=== PATIENT | female | born 1990 | race Caucasian/White ===

== ENCOUNTER → 2016-10-11 | Outpatient (CLI) | payer OTHER ==
[~2016-10-11] MED LIST: PRENTAB26 PO
[2016-10-11 12:21] LABS: BASO % 0.7 %; BASO ABS # 0.07 K/uL (0-0.2); COMPLETE YES; EOS % 1.3 %; HEMATOCRIT 39.4 % (37-47); IG% 0.4 %; LYMPH % 26.5 %; LYMPH ABS # 2.75 K/uL (1.2-3.4); MEAN CELL VOLUME 87.4 fL (80-100); MEAN CORPUSCULAR HEMOGLOBIN 31.5 pg (25-34); MEAN PLATELET VOLUME 10.1 fL (7.4-10.4); MONO % 6.5 %; NEUT % 64.6 %; PLATELET COUNT 260 K/uL (130-400); RED BLOOD COUNT 4.51 M/uL (4.2-5.4); WHITE BLOOD COUNT 10.38 K/uL (4.8-10.8)
== END | disposition home or self-care (01) ==
LOC: C.LAB1850 10:35
PROVIDERS: ATTEND Obstetrics & Gynecology
DX: Z34.90 Encounter for supervision of normal pregnancy, unspecified, unspecified trimester (principal)

== ENCOUNTER → 2016-10-25 | Outpatient (CLI) | payer OTHER ==
[2016-10-25 14:15] LABS: GTGD 50 Grams
== END | disposition home or self-care (01) ==
LOC: C.LAB1850 12:21
PROVIDERS: ATTEND Obstetrics & Gynecology
DX: Z34.92 Encounter for supervision of normal pregnancy, unspecified, second trimester (principal)

== ENCOUNTER → 2017-03-20 | Outpatient (CLI) | payer OTHER ==
[2017-03-20 13:18] LABS: URINE APPEARANCE CLEAR (CLEAR); URINE BILIRUBIN NEG (NEG); URINE COLOR YELLOW; URINE NITRITE NEG (NEG); URINE PH 7.5 (4.5-7.5); URINE SPECIFIC GRAVITY 1.015 (1.000-1.030); UROBILINOGEN NEG (NEG)
[2017-03-20 13:24] LABS: MANUAL MICROSCOPIC REQUIRED? NO; REVIEW REQ? NO
== END | disposition home or self-care (01) ==
LOC: C.LAB1850 12:05
PROVIDERS: ATTEND Obstetrics & Gynecology
DX: Z34.03 Encounter for supervision of normal first pregnancy, third trimester (principal)

== ENCOUNTER 2017-04-12 16:43 | Inpatient (IN) | payer OTHER ==
[~2017-04-12] VITALS: Ht 160 cm; Wt 60.9 kg
[2017-04-12] MEDS ORDERED: PRENTAB26 PO (17:34)
[2017-04-12 17:35] VITALS: Ht 160 cm; Wt 60.9 kg
[2017-04-12] MEDS ORDERED: LACTATED RINGER'S 1000ML 1,000 ML IV PRN (19:59)
[2017-04-12] MEDS ORDERED: OXYTOCIN 30 UNITS/500ML NSS IV ONE (20:00)
[2017-04-12 20:18] LABS: HEMATOCRIT 37.1 % (37-47); MEAN CELL VOLUME 87.3 fL (80-100); MEAN CORPUSCULAR HEMOGLOBIN 30.4 pg (25-34); MEAN CORPUSCULAR HGB CONC 34.8 g/dl (32-36); MEAN PLATELET VOLUME 10.2 fL (7.4-10.4); PLATELET COUNT 207 K/uL (130-400); RED BLOOD COUNT 4.25 M/uL (4.2-5.4)
[2017-04-12] MEDS ORDERED: LACTATED RINGER'S 1000ML 1,000 ML IV SCH (20:30)
[2017-04-12] MEDS ORDERED: BENZOCAINE 20% AER SPR 82.5 GM CAN EXT PRN (20:45)
[2017-04-12] MEDS ORDERED: ACETAMINOPHEN/CODEINE 300/30MG TAB PO PRN ×2 (20:45)
[2017-04-12] MEDS ORDERED: OXYTOCIN 30 UNITS/500ML NSS IV PRN (20:45)
[2017-04-12] MEDS ORDERED: ACETAMINOPHEN 325 MG TAB PO PRN (20:45)
[2017-04-12] MEDS ORDERED: SUPERCREAM 0.870 % 15GM JAR EXT PRN (20:45)
[2017-04-12] MEDS ORDERED: LANOLIN OINT EXT PRN ×2 (20:45)
[2017-04-12 23:40] VITALS: BP 128/73; PULSE 79; TEMP 36.9
--- NOTE | 2017-04-12 23:51 | DELIVERY SUMMARY ---
DATE OF OPERATION: 04/12/2017 The patient is a 26-year-old 2, para 1-0-0-1 white female, EDC of 04/13/2017, who presented with spontaneous onset of labor. She progressed to full dilation after rupture of membranes for clear fluid at 8 cm. She pushed effectively over an intact perineum for delivery of a viable female infant. Mouth and nasopharynx were suctioned on the perineum. There was vigorous crying and the infant was moving all four limbs. The placenta was expressed intact with a 3-vessel cord. There was a superficial abrasion of the left labia that was not repaired because it was not bleeding. Estimated blood loss was 250. Mother and infant doing well after the delivery. I attest to the content of the Intraoperative Record and any orders documented therein. Any exception s are noted below.
[2017-04-13] MEDS: IBUPROFEN 600 MG TAB PO PRN ×2 (00:40→16:32)
[2017-04-13 03:30] VITALS: BP 102/62; PULSE 62; TEMP 36.6
[2017-04-13 07:22] LABS: HEMATOCRIT 32.7 % (37-47)
[2017-04-13 07:32] VITALS: BP 107/67; PULSE 60; TEMP 36.6; O2SAT 98
[2017-04-13] MEDS: DOCUSATE SODIUM 100 MG CAP PO SCH ×2 (07:59→19:58)
[2017-04-13] MEDS ORDERED: PRENATAL VITAMIN TAB PO SCH (08:00)
--- NOTE | 2017-04-13 08:56 | Progress Note ---
Subjective Apr 13, 2017. Subjective conversation w/ patient, physical exam Ambulation: ambulating normally Voiding: no voiding problems Passing Gas: Yes Diet Tolerance: Regular Diet Lochia: Small Feeding Type: Breast Feeding Review of Systems Cardiac: No chest pain, No orthopnea, No PND, No edema, No claudication, No palpitations, No problem reported Breast: No see HPI, No breast lump, No change in shape, No nipple discharge, No breast pain, No problem reported Abdomen: No pain, No nausea, No vomiting, No diarrhea, No constipation, No GI bleeding, No problem reported Female : No see HPI, No dysuria, No urinary frequency, No hematuria, No incontinence, No abnormal vaginal bleeding, No vaginal discharge, No problem reported Objective Vital Signs Date Time Temp Pulse Resp B/P (MAP) Pulse Ox O2 Delivery O2 Flow Rate FiO2 04/13/17 07:32 36.6 60 16 107/67 (80) 98 Room Air 04/13/17 03:30 36.6 62 18 102/62 (75) Room Air 04/12/17 23:40 Room Air 04/12/17 23:40 36.9 79 18 128/73 (91) Room Air Physical Exam General Appearance: WELL-APPEARING Abdomen: non tender, soft Fundus: Firm, Non-Tender Extremities: no calf tenderness Laboratory Results Last 24 Hours Test 04/12/17 20:09 04/13/17 07:08 White Blood Count 17.70 K/uL Red Blood Count 4.25 M/uL Hemoglobin 12.9 g/dL 11.4 g/dL Hematocrit 37.1 % 32.7 % Mean Corpuscular Volume 87.3 fL Mean Corpuscular Hemoglobin 30.4 pg Mean Corpuscular Hemoglobin Concent 34.8 g/dl RDW Standard Deviation 40.6 fL RDW Coefficient of Variation 12.7 % Platelet Count 207 K/uL Mean Platelet Volume 10.2 fL Assessment and Plan Day#: 1 Continue Routine Care: stable course continue current care plan.
--- NOTE | 2017-04-13 08:58 | Discharge Instructions ---
Discharge Instructions Date of Service Apr 13, 2017. Admission Reason for Admission: Normal Labor Discharge Discharge Diagnosis / Problem: recovery form normal delivery Discharge Goals Goal(s): Routine recovery after delivery Medications Continue Dispensed Medications: supercream, dermaplast, tucks, lansinoh Activity Recommendations Activity Limitations: per Instructions/Follow-up section . Instructions / Follow-Up Instructions / Follow-Up ACTIVITY RECOMMENDATIONS: * Gradual return to full activity over the next 2-3 weeks. * No lifting - nothing heavier than baby over the next 2-3 weeks. * Do not engage in vigorous exercise, sexual activity or sports until cleared by your physician. * Do not drive or operate any motorized equipment until cleared by your physician. * You may shower/bathe daily. MEDICATIONS: For discomfort or pain, you may use Acetaminophen (Tylenol), Ibuprofen (Advil), or Naproxen (Aleve) following the package directions. For constipation you may use Colace following the package directions. BREAST CARE: If you are not breast feeding: * Wear a supportive bra 24 hours a day for one to two weeks. * Avoid stimulating your breasts and nipples as much as possible during the first few weeks after delivery. * When taking a shower, have the warm water hit your back, not breasts. * When your breasts feel full, apply ice packs. Usually three to four times a day helps ease the discomfort. * Take a mild pain medication (Tylenol / Motrin) when you are uncomfortable. If breast feeding: * Use breast milk to lubricate nipples. Lansinoh cream may be used for sore nipples. You do not need to remove cream prior to breast feeding. If using a different brand of cream, check the label for directions regarding removal of cream prior to nursing. * Wear a supportive bra. * If having problems with breasts or breast feeding, call a application development consultant or your health care provider. EPISIOTOMY CARE: After delivery, if you have an episiotomy (stitches), the following steps will ease discomfort and aid healing. * For the first 24 hours after delivery, place ice packs next to your episiotomy to help reduce swelling. * After the first 24 hour-period, sitz baths, either portable or in the tub, are suggested. A shower with a shower arm sprayed over the episiotomy may be comforting. * Helen care should be done after each voiding and bowel movement. Squirt warm water from a plastic bottle over the perineum (region of the body between the anus and urinary opening) and pat dry. * Use Dermoplast to ease discomfort. Shake container. [place] directly over the episiotomy. Place a Tucks on a clean sanitary pad next to your episiotomy. SPECIAL CARE INSTRUCTIONS: When you are discharged from the hospital, it is important for you to follow the instructions listed below: * During the first week at home, you should be able to care for yourself and your baby. In addition, the usual light household activities are encouraged. * Limit your activities to the way you feel. Do not try to clean the house or move furniture. Be sensible. * If you actively engage in sports and have done so up until the time of your delivery, you may resume these activities as soon as you feel able. This may take up to one month or even longer. Use good judgment. * Continue to take your vitamins for at least six weeks after the of your baby. * Your diet need not be limited unless you were on a special diet before your delivery. Breast-feeding mothers need around 2500 calories per day and at least 64-80 ounces of fluid per day (8 to 10 glasses). * You should eat foods from the four major food groups. Crash diets or fad diets are to be avoided. Eating lean meats, fresh fruits and vegetables, low-fat dairy products, high fiber foods and a regular exercise program, will help you get back to your pre- weight without putting your health at risk. * Constipation is sometimes a problem after delivery. Take a mild laxative as needed. If breast feeding, Milk of Magnesia is acceptable to use. You may use a suppository or Fleets enema if no episiotomy. * A daily shower or tub bath is suggested. Be sure to thoroughly and gently dry the perineum. * A bloody vaginal discharge will usually continue until around four weeks post . A small amount of bleeding may continue for as long as six weeks. Vaginal discharge changes from the bright red bleeding after delivery to pink then brownish and finally yellowish-pink before becoming white and disappearing. * Bleeding may increase with activity. Your first period may come in 4-8 weeks. If you are breast feeding, your period may be delayed even longer. * Wilbur (sex) can begin whenever both you and your partner feel comfortable and do not have any form of genital infection. It is recommended that you wait at least six weeks for internal and external healing to occur. If you have questions, please talk to your health care practitioner. A condom should be used to prevent infection and . * Foreplay, gentle intercourse and lubrication is very important the first several times to prevent pain. A water-based lubricant such as K-Y jelly or Astroglide may be used. * If you have RH negative blood and your baby is RH positive, you will receive RHOGAM by injection prior to discharge. The nurse will give you a card to keep with you that has the date and place that you received RHOGAM after delivery. * During your care, you had a Rubella screen done to check for the presence of rubella antibodies in your blood. If your test was negative, you will receive a Rubella vaccine prior to discharge. This vaccine may cause a fever, soreness at the injection site and flu-like symptoms. If these symptoms persist, notify your health care practitioner. is not advised for one month after a Rubella vaccine. * Verbalizes understanding of car seat law as reviewed with patient nursing. * Car Seat hand-out given and reviewed with patient by nursing. * Shaken baby information reviewed with patient by nursing. Call you doctor if: * Heavy bleeding (saturating several pads an hour) or passing clots the size of your fist. * A fever >101 degrees F (38.3 degrees C) on two occasions four hours apart and /or chills. * Unusual pain in the pelvic or vaginal areas. * "Baby Blues" lasting longer than two weeks. If you have any questions or concerns, call your health care practitioner at . FOLLOW UP VISIT: * Please call the office at to schedule a 6 week examination. It is important you keep this appointment. It is important for you to make arrangements for either yearly or twice yearly check-ups thereafter. Current Hospital Diet Patient's current hospital diet: Regular OB Diet Discharge Diet Recommended Diet: Regular OB Diet Pending Studies Studies pending at discharge: no Medical Emergencies . Who to Call and When: Medical Emergencies: If at any time you feel your situation is an emergency, please call [phone] immediately. . Non-Emergent Contact Non-Emergency issues call your: Pharmacist In Charge . . "Provider Documentation" section prepared by Cee Torre. . VTE Core Measure Inpt VTE Proph given/why not?: Treatment not indicated
[2017-04-13 13:00] VITALS: BP 117/76; PULSE 76; TEMP 36.6; O2SAT 98
[2017-04-13 16:15] VITALS: BP 113/74; PULSE 67; TEMP 36.5; O2SAT 97
[2017-04-13 20:09] VITALS: BP_DIAS 74; PULSE 67; TEMP 36.5
== END 2017-04-13 22:18 | disposition home or self-care (01) | DRG 775 ==
LOC: C.OPB 16:43 → C.LD 16:44 → C.OPB 20:01 → C.OBG 23:23
PROVIDERS: ADMIT Student in an Organized Health Care Education/Training Program; ATTEND Obstetrics & Gynecology
PROC: 10E0XZZ Delivery of Products of Conception, External Approach (ICD-10-PCS; principal; 2017-04-12)
DX: O80 Encounter for full-term uncomplicated delivery (principal); Z88.0 Allergy status to penicillin; Z37.0 Single live birth; Z3A.39 39 weeks gestation of pregnancy

== ENCOUNTER → 2018-03-30 | Outpatient (CLI) | payer OTHER | END | disposition home or self-care (01) | LOC: C.LABSPEC 16:41 | PROVIDERS: ATTEND Obstetrics & Gynecology | DX: Z34.81 Encounter for supervision of other normal pregnancy, first trimester (principal) ==

== ENCOUNTER → 2018-04-07 | Outpatient (CLI) | payer OTHER ==
[2018-04-07 12:35] LABS: BASO % 0.4 %; BASO ABS # 0.04 K/uL (0-0.2); EOS % 2.5 %; EOS ABS # 0.22 K/uL (0-0.5); HEMATOCRIT 38.8 % (37-47); HEMOGLOBIN 13.6 g/dL (12.0-16.0); IG# 0.03 K/uL (0.00-0.02); LYMPH % 29.8 %; LYMPH ABS # 2.66 K/uL (1.2-3.4); MEAN CELL VOLUME 85.5 fL (80-100); MEAN CORPUSCULAR HGB CONC 35.1 g/dl (32-36); MEAN PLATELET VOLUME 10.3 fL (7.4-10.4); MONO % 6.7 %; NEUT % 60.3 %; NEUT ABS # 5.38 K/uL (1.4-6.5); PLATELET COUNT 262 K/uL (130-400); RED CELL DISTRIBUTION WIDTH CV 12.8 % (11.5-14.5); RED CELL DISTRIBUTION WIDTH SD 39.9 fL (36.4-46.3); WHITE BLOOD COUNT 8.93 K/uL (4.8-10.8)
== END | disposition home or self-care (01) ==
LOC: C.LAB1850 11:13
PROVIDERS: ATTEND Obstetrics & Gynecology
DX: Z34.81 Encounter for supervision of other normal pregnancy, first trimester (principal); Z20.9 Contact with and (suspected) exposure to unspecified communicable disease

== ENCOUNTER → 2018-04-07 | Outpatient (CLI) | payer OTHER | END | disposition home or self-care (01) | LOC: C.PAPS 14:00 | PROVIDERS: ATTEND Obstetrics & Gynecology | DX: Z12.4 Encounter for screening for malignant neoplasm of cervix (principal) ==

== ENCOUNTER 2018-11-14 19:52 | Inpatient (IN) ==
[2018-11-14] MEDS ORDERED: OXYTOCIN 30 UNITS/500 ML BAG IV PRN (20:10)
[2018-11-14] MEDS ORDERED: LACTATED RINGER'S 1,000 ML IV PRN (20:10)
[2018-11-14] MEDS ORDERED: LACTATED RINGER'S 1,000 ML IV SCH (20:15)
--- NOTE | 2018-11-14 20:18 | History & Physical Report ---
Date of Service November 14, 2018 Assessment & Plan (1) 40 weeks gestation of : Since patient has made cervical change since office exam on , will plan to admit to L&D. Will obtain labs, start IV. Patient ok to walk halls afterwards, providing normal tracing, and will then plan to recheck cervix to monitor labor status. Patient is agreeable to this plan. She does not plan for epidural. History of Present Illness Chief Complaint: r/o labor Primary Care Provider: NO PCP 28yo @ 40 0/7 presents with worsening regular ctx. No leaking of fluid, no vaginal bleeding. + movement. No additional symptoms. complicated by small VSD seen on echo at [facility] - no followup was recommended. Allergies Allergy/AdvReac Type Severity Reaction Status Date / Time Penicillins Allergy Mild RASH Verified 04/12/17 17:34 Home Medications Home Medications Medication Instructions Recorded Confirmed Type vit-iron fum-folic ac 1 tab PO DAILY 08/27/18 08/27/18 History [ Vitamin] Patient History Social History Preferred Language: Yi Communication Ability: Effective Beliefs That Will Affect Care: None marital status: Current Living Situation: Spouse and Family Other Information That Helps Us Care for You: No Feels Safe at Home: Yes Smoking Status: Never smoker Hx Alcohol Use: No Hx Substance Use: No Review of Systems All systems reviewed & are unremarkable except as noted in HPI & below Physical Exam Vital Signs (Past 24 Hours): Last Vital Signs Pulse 85 11/14/18 19:56 BP 133/7 L 11/14/18 20:04 Physical Exam: Gen: AAOx3 NAD CV: RRR S1S2 L: CTAB Abd: soft, NTTP, gravid Ext: no edema SVE: 90/-1 FHT: Cat 1 [place]: Q 2-5 min
[2018-11-14 20:49] LABS: Hematocrit (blood only) 33.1 % (37-47); Hemoglobin 11.6 g/dL (12.0-16.0); Mean Corpuscular Volume 88.7 fL (80-100); Mean Platelet Volume 10.7 fL (7.4-10.4); Platelet Count 204 K/uL (130-400); RDW Coefficient of Variation 12.8 % (11.5-14.5); RDW Standard Deviation 41.2 fL (36.4-46.3); Red Blood Count 3.73 M/uL (4.2-5.4); White Blood Count 11.98 K/uL (4.8-10.8)
--- NOTE | 2018-11-14 22:25 | Obstetrical Progress Note ---
Date of Service November 14, 2018 Subjective Feeling increased pressure with contractions. FHT Cat 1 [place] Q 2-4 SVE 6/100/0 AROM clear fluid. Anticipate . Physical Exam Vital Signs (Past 24 Hours): Last Vital Signs Pulse 86 11/14/18 22:22 Resp 18 11/14/18 22:00 BP 136/94 11/14/18 22:22
--- NOTE | 2018-11-14 23:59 | Procedure Note ---
Vaginal Delivery Summary Date of Service November 14, 2018 Vaginal Delivery Summary Predelivery diagnoses: 28yo @ 40 0/7, spontaneous labor Postdelivery diagnoses: same Procedure: Spontaneous vaginal delivery Surgeon: Pooja Fabian DO Estimated blood loss: 300 mL Complications: None Findings: Viable female , Apgars 8 and 9. Weight pending, please see nursery records. Description of delivery: The patient progressed to complete without anesthesia. She then began to push. She spontaneously vaginally delivered a viable female from the cephalic presentation. The head delivered in the right occiput anterior position, no nuchal cord was noted. The posterior arm then delivered, spontaneously. Next, the anterior shoulder delivered, followed by body. The baby was placed on mother's abdomen, spontaneous cry was heard. The cord was doubly clamped and cut, cord blood was obtained. The placenta was delivered spontaneously intact with a three-vessel cord. The uterus and vagina were swept of all clots and debris. The cervix vagina and perineum were inspected, a small superficial abrasion superior to the clitoris was noted. This was hemostatic, and I discussed with patient that I thought sutures would be more irritating than helpful. This was therefore, not repaired. Excellent hemostasis was observed. Sponge and instrument counts were correct at the conclusion of the delivery x2. Mother and baby recovered in stable and good condition in the room.
[2018-11-15] MEDS ORDERED: BENZOCAINE 20% AER SPR 82.5 GM CAN EXT PRN (02:18)
[2018-11-15] MEDS ORDERED: ACETAMINOPHEN 325 MG TAB PO PRN (02:18)
[2018-11-15] MEDS ORDERED: SUPERCREAM 0.870% 15 GM JAR EXT PRN (02:18)
[2018-11-15] MEDS ORDERED: OXYTOCIN 30 UNITS/500 ML BAG IV PRN (02:18)
[2018-11-15] MEDS ORDERED: OXYCODONE/ACETAMINOPHEN 5mg/325mg TAB PO PRN (02:18)
[2018-11-15] MEDS ORDERED: BISACODYL 10 MG SUPP PR PRN (02:18)
[2018-11-15] MEDS ORDERED: DIPHTHERIA/TETANUS/PERTUSSIS 0.5 ML SYR/VIAL IM ONE (02:18)
[2018-11-15] MEDS ORDERED: HYDROCORTISONE ACETATE 25 MG SUPP PR PRN (02:18)
[2018-11-15] MEDS: IBUPROFEN 600 MG TAB PO PRN (06:26)
[2018-11-15 07:13] LABS: Hematocrit (blood only) 35.5 % (37-47); Hemoglobin 12.1 g/dL (12.0-16.0)
[2018-11-15] MEDS: DOCUSATE SODIUM 100 MG CAP PO SCH ×2 (09:28→19:59)
[2018-11-15] MEDS: PRENATAL VITAMIN 1 TAB PO SCH (09:28)
--- NOTE | 2018-11-15 09:41 | Obstetrical Progress Note ---
Date of Service November 15, 2018 Assessment & Plan (1) Vaginal delivery: PPD#1 doing well. No concerns. Anticipate DC home tomorrow. Subjective PPD#1 doing well. No concerns. Ambulating, eating, drinking ok. Moderate lochia. well. Physical Exam Vital Signs (Past 24 Hours): Last Vital Signs Temp 36.9 C 11/15/18 08:30 Pulse 61 11/15/18 08:30 Resp 18 11/15/18 08:30 BP 119/68 11/15/18 08:30 Pulse Ox 97 11/15/18 08:30 Physical Exam: Gen: AAOx3 NAD CV: RRR L: CTAB Abd: soft, NTTP Ext: no edema
[2018-11-15] MEDS ORDERED: BISACODYL 5 MG TABEC PO SCH (20:00)
[2018-11-16] MEDS: IBUPROFEN 600 MG TAB PO PRN (06:20)
--- NOTE | 2018-11-16 07:28 | Obstetrical Progress Note ---
Date of Service November 16, 2018 Assessment & Plan (1) Vaginal delivery: PPD#2 doing well. Discharge instructions reviewed. Followup office 6w. Subjective PPD#2 doing well. Ambulating, eating, drinking, breast feeding well. Moderate lochia. No concerns. Physical Exam Vital Signs (Past 24 Hours): Last Vital Signs Temp 36.5 C 11/16/18 00:15 Pulse 68 11/16/18 00:15 Resp 18 11/16/18 00:15 BP 112/72 11/16/18 00:15 Pulse Ox 98 11/15/18 11:40 Physical Exam: Gen: AAOx3 NAD CV: RRR L: CTA Abd: soft, NTTP, fundus firm Ext: no edema
[2018-11-16] MEDS: DOCUSATE SODIUM 100 MG CAP PO SCH (08:06)
[2018-11-16] MEDS: PRENATAL VITAMIN 1 TAB PO SCH (08:07)
== END 2018-11-16 10:00 | disposition home or self-care (01) | DRG 807 ==
LOC: OPB 19:52 → 4S1 19:55 → 4S2 11-15 02:16

== ENCOUNTER 2021-05-18 07:32 | Inpatient (IN) ==
[2021-05-18] MEDS ORDERED: OXYTOCIN 30 UNITS/500 ML BAG IV PRN (07:45)
[2021-05-18] MEDS ORDERED: LACTATED RINGER'S 1,000 ML IV PRN (07:45)
--- NOTE | 2021-05-18 08:29 | History & Physical Report ---
Date of Service May 18, 2021 Assessment & Plan (1) Encounter for elective induction of labor: Plan: admit, iv, labs. covid test. plan arom and then pit if needed. fhts categ 1. Admission and Anticipated Discharge Date Admission Date: May 18, 2021 History of Present Illness Chief Complaint: induction Primary Care Provider: NO PCP 30yo at 40+wks charla presents to L&D with above cc. She denies regular ctx or rom. No vb. +FM. Prefers to try arom to see if starts labor pattern. PNC c/b 1. child with CHD--> echo wnl PNL Rh pos, RI, GBS neg OBH: x 3 GYNH: nl paps, no stds Allergies Allergy/AdvReac Type Severity Reaction Status Date / Time Penicillins Allergy Mild RASH Verified 05/16/21 13:50 Home Medications Medication Instructions Recorded Confirmed Type vitamins-iron fumarate 27 1 tab PO DAILY 08/27/18 05/18/21 History mg iron-folic acid 0.8 mg tablet ( Vitamin) Patient History Medical History (Updated 05/18/21 @ 08:28 by Rehana Garay MD, FACOG) No pertinent past medical history Surgical History (Updated 10/04/20 @ 12:20 by Nette Norwood MD) S/P wisdom tooth extraction Family History Mother Thyroid disease Social History (Updated 05/18/21 @ 07:51 by Sherrill Bell, ZACH) Smoking Status: Never smoker Hx Alcohol Use: No Hx Substance Use: No Preferred Language: Bahraini Communication Ability: Effective Leather Etcher Required: No Beliefs That Will Affect Care: None marital status: marital status details: Fitz (32 ) [phone] Current Living Situation: Spouse Current Living Situation Comment: Lives with and 3 daughters. current occupational status: unemployed current occupation: Homemaker Other Information That Helps Us Care for You: No Feels Safe at Home: Yes Safety Concerns: Feels Safe At This Time Assistive Devices: None Review of Systems as per Subjective / HPI Physical Exam Constitutional: WD/WN, vitals as above Respiratory: normal respiratory effort, lungs clear to auscultation Cardiovascular: Rate/Rhythm: regular rate and regular rhythm Gastrointestinal (Abdomen): soft gravid nt Musculoskeletal: no edema nontender calves Neurologic: grossly normal Psychiatric: A+Ox3, euthymic affect Genitourinary: OB Exam Abdomen: + estimated weight (7-8#) OB Exam Monitor Tracing: + external FHT monitor used, + external uterine monitor used, + category I and + normal FHT variability Results & Data ([facility]) Vital Signs (Past 12 Hours) Vital Signs Temp Pulse Resp BP 05/18/21 08:00 74 139/74 05/18/21 07:51 99.0 F 18 Coding Level of Care Code None Diagnoses Encounter for elective induction of labor Z34.90
[2021-05-18 08:50] LABS: Hematocrit (blood only) 35.5 % (37-47); Hemoglobin 12.4 g/dL (12.0-16.0); Mean Corpuscular Hemoglobin 31.4 pg (25-34); Mean Corpuscular Hgb Conc 34.9 g/dL (32-36); Mean Corpuscular Volume 89.9 fL (80-100); Platelet Count 191 K/uL (130-400); RDW Coefficient of Variation 13.2 % (11.5-14.5); RDW Standard Deviation 42.8 fL (36.4-46.3); Red Blood Count 3.95 M/uL (4.2-5.4); White Blood Count 10.52 K/uL (4.8-10.8)
--- NOTE | 2021-05-18 09:14 | Labor Progress Brief Note ---
Date of Service May 18, 2021 Subjective ready for arom, covid test neg Assessment & Plan (1) Encounter for elective induction of labor: Plan: will see how arom affects labor pattern, consider pit in 1-2 hr if no labor pattern. fhts categ 1. Admission and Anticipated Discharge Date Admission Date: May 18, 2021 Physical Exam Constitutional: WD/WN, vitals as above Genitourinary: Manual OB Exam: + cervical dilation 3 cm, + cervical effacement (75%), + station -2 and + amniotic fluid (AROM) clear Results & Data ([facility]) Vital Signs (Past 12 Hours) Vital Signs Temp Pulse Resp BP 05/18/21 09:07 76 135/67 05/18/21 08:00 74 139/74 05/18/21 07:51 99.0 F 18 Coding Level of Care Code None Diagnoses Encounter for elective induction of labor Z34.90
[2021-05-18] MEDS: OXYTOCIN 30 UNITS/500 ML BAG IV PRN ×2 (11:40→14:04)
--- NOTE | 2021-05-18 11:44 | Delivery Summary ---
Vaginal Delivery Summary Date of Service May 18, 2021 Vaginal Delivery Summary The patient dilated to complete and pushed to deliver a viable female infant Apgars 9 and 9 via over intact perineum. Mouth and nose bulb suctioned at perineum. Shoulders and body delivered with ease. was vigorous and crying at . Cord clamped at 30 seconds of life and to maternal abdomen where the cord was then doubly clamped and cut. Placenta delivered spontaneously and intact, three-vessel cord. Hemostasis achieved with dilute pitocin and uterine massage and drainage of the bladder for approximately 300 cc under sterile conditions. Cervix and sulci intact. Small left periurethral laceration noted but hemostatic and left unrepaired. EBL 300 cc. Mother and baby stable recovery. [facility] Vaginal Delivery Charge Delivery Type Details:
[2021-05-18] MEDS ORDERED: ACETAMINOPHEN 325 MG TAB PO PRN (12:00)
[2021-05-18] MEDS: IBUPROFEN 600 MG TAB PO PRN ×2 (13:19→21:04)
[2021-05-19] MEDS ORDERED: BENZOCAINE 20% AER SPR 82.5 GM CAN EXT PRN (01:39)
[2021-05-19] MEDS ORDERED: SUPERCREAM 0.870% 15 GM JAR EXT PRN (01:39)
[2021-05-19] MEDS ORDERED: oxyCODONE/ACETAMINOPHEN 5mg/325mg TAB PO PRN (01:39)
[2021-05-19] MEDS ORDERED: HYDROCORTISONE ACETATE 25 MG SUPP PR PRN (01:39)
[2021-05-19] MEDS: IBUPROFEN 600 MG TAB PO PRN (07:20)
[2021-05-19] MEDS ORDERED: DOCUSATE SODIUM 100 MG CAP PO SCH (08:00)
--- NOTE | 2021-05-19 08:12 | Obstetrical Progress Note ---
Date of Service May 19, 2021 Assessment & Plan (1) examination following vaginal delivery: doing well, ready for d/c home, instructions reviewed. f/u 6 wk pp check. rh pos, ri, breast feeding. Day #:: 1 Subjective Ambulation: ambulating normally Voiding: no voiding problems Diet Tolerance:: regular diet Lochia:: Small Feeding Type:: breast feeding denies pain Physical Exam Constitutional WD/WN, vitals as above Respiratory normal respiratory effort, lungs clear to auscultation Cardiovascular Rate/Rhythm: regular rate and regular rhythm Gastrointestinal (Abdomen) Inspection/Auscultation: abdomen normal to inspection Percussion/Palpation: abdomen soft Fundus firm 2cm down Musculoskeletal nt calves no edema Neurologic grossly normal Psychiatric A+Ox3, euthymic affect Results & Data ([facility]) Vital Signs (Past 12 Hours) Vital Signs Temp Pulse Resp BP Pulse Ox 05/19/21 04:55 98.2 F 60 14 106/66 98 05/18/21 23:10 98.2 F 68 16 100/63 98
== END 2021-05-19 12:55 | disposition home or self-care (01) | DRG 807 ==
LOC: 4S1 07:32 → 4S2 15:40